=== PATIENT | male | born 1935 | race Caucasian/White ===

== ENCOUNTER 2018-05-31 07:55 | Observation (INO) ==
[2018-05-31 08:22] LABS: Basophils % 0.6 % (0.0-0.8); Eosinophils # 0.2 10*3/uL (0.0-0.87); Eosinophils % 3.1 % (0.00-10.9); Hematocrit 43.4 VOL% (42.0-52.0); Hemoglobin 14.6 GM/DL (14.0-18.0); Immature Granulocytes % 0.7 %; Immature Granulocytes Absolute 0.05 #; Lymphocytes # 1.3 10*3/uL (1.4-4.0); Lymphocytes % 17.8 % (21.2-54.2); Mean Corpuscular HGB Conc 33.6 GM/DL (32-36); Mean Corpuscular Hemoglobin 33 PG (27-34); Mean Corpuscular Volume 98.6 FL (87-102); Monocytes # 0.7 10*3/uL (0.11-0.8); Monocytes % 10.4 % (1.7-12.7); Neutrophils # 4.7 10*3/uL (1.4-7.4); Neutrophils % 67.4 % (38.7-73.9); Platelet Count 154 T/CUMM (130-400); Red Cell Distribution Width 13.5 % (9.3-17.3)
[2018-05-31 08:30] LABS: INR 1.1; PT Patient Result 11.6 SECS; Partial Thromboplastin Time 26.6 SECS (0-40)
[2018-05-31] MEDS ORDERED: ENOXAPARIN 100 MG/ML SYRINGE SUBCUT STA (08:32)
[2018-05-31 08:54] LABS: Alanine Aminotransferase 72 U/L (16-61); Albumin 3.8 G/DL (3.4-5.0); Alkaline Phosphatase 77 U/L (45-117); Aspartate Amino Transferase 41 U/L (0-37); Bilirubin,Total < 0.39 MG/DL (0.2-1.0); Blood Urea Nitrogen 21 MG/DL (7-18); Calcium 8.6 MG/DL (8.5-10.1); Glucose 184 MG/DL (74-106); Potassium 4.8 MMOL/L (3.5-5.1); Sodium 143 MMOL/L (136-145); Total Protein 6.8 G/DL (6.4-8.3)
[2018-05-31] MEDS ORDERED: MAGNESIUM SULF RIDER 4 GM in PREMIX 1 EACH IV PRN (09:42)
[2018-05-31] MEDS ORDERED: MAGNESIUM SULF RIDER 2 GM in PREMIX 1 EACH IV PRN (09:42)
[2018-05-31] MEDS ORDERED: HEPARIN/NACL 0.9% 2 UNITS/ML 1,000 ML IV ONE (09:46)
[2018-05-31] MEDS ORDERED: fentaNYL 100 MCG/2 ML VIAL ONE (09:54)
[2018-05-31] MEDS ORDERED: MIDAZOLAM 2 MG/2 ML VIAL ONE ×2 (09:54→10:25)
[2018-05-31] MEDS ORDERED: LIDOCAINE 1% 20 ML VIAL ONE (09:54)
[2018-05-31] MEDS ORDERED: diphenhydrAMINE CAP 25 MG CAPSULE PO ONE (09:59)
[2018-05-31] MEDS ORDERED: DIAZEPAM 5 MG TABLET PO ONE (09:59)
[2018-05-31] MEDS ORDERED: SODIUM CHLORIDE 0.9% 1,000 ML IV SCH (10:00)
[2018-05-31] MEDS ORDERED: guaiFENesin/DM ER 600-30 MG TABLET PO PRN (10:01)
[2018-05-31] MEDS ORDERED: BISACODYL 5 MG TABLET PO PRN (10:01)
[2018-05-31] MEDS ORDERED: DOCUSATE SODIUM 100 MG CAPSULE PO PRN (10:01)
[2018-05-31] MEDS ORDERED: ONDANSETRON 4 MG/2 ML VIAL IV PRN (10:01)
[2018-05-31] MEDS ORDERED: NITROGLYCERIN SL 0.4 MG TABLET SL PRN (10:01)
[2018-05-31] MEDS ORDERED: ACETAMINOPHEN 325 MG TABLET PO PRN (10:01)
[2018-05-31] MEDS ORDERED: ZALEPLON 5 MG CAPSULE PO PRN (10:01)
[2018-05-31] MEDS ORDERED: ALUMINUM/MAGNES/SIMETH MAX STR 30 ML UDCUP PO PRN (10:01)
[2018-05-31] MEDS ORDERED: DEXTROSE 50% 25 GM/50 ML VIAL IV PRN (10:03)
[2018-05-31] MEDS ORDERED: GLUCAGON 1 MG VIAL IM PRN (10:03)
[2018-05-31] MEDS ORDERED: hydrALAZINE 20 MG/1 ML VIAL IV PRN (10:04)
[2018-05-31] MEDS ORDERED: HEPARIN/NACL 0.9% 2 UNITS/ML 500 ML IV ONE (10:51)
[2018-05-31] MEDS ORDERED: ASPIRIN 325 MG TABLET ONE (11:03)
[2018-05-31] MEDS ORDERED: TICAGRELOR 90 MG TABLET ONE (11:04)
[2018-05-31] MEDS ORDERED: ACETAMINOPHEN/CODEINE 300-30 MG TABLET PO PRN (11:35)
[2018-05-31] MEDS ORDERED: MORPHINE 4 MG/1 ML VIAL IV PRN (11:35)
[2018-05-31] MEDS: INSULIN LISPRO 100 UNIT/ML SUBCUT SCH ×3 (12:50→20:10)
[2018-05-31 13:30] LABS: Troponin I 0.473 NG/ML (0.00-0.045)
[2018-05-31 15:01] LABS: Troponin I 0.417 NG/ML (0.00-0.045)
[2018-05-31] MEDS: GLIMEPIRIDE 4 MG TABLET PO SCH (17:16)
[2018-05-31 18:33] LABS: Troponin I 0.317 NG/ML (0.00-0.045)
[2018-05-31] MEDS: TICAGRELOR 90 MG TABLET PO SCH (20:08)
[2018-05-31] MEDS: CARVEDILOL 25 MG TABLET PO SCH (20:09)
[2018-05-31] MEDS ORDERED: CLOPIDOGREL 75 MG TABLET PO SCH (21:00)
[2018-05-31] MEDS ORDERED: NON-FORMULARY MEDICATION (Liraglutide [Victoza 2-Pak] 0.6 MG) SUBCUT SCH (21:00)
[2018-05-31] MEDS ORDERED: ASPIRIN EC 81 MG TABLET PO SCH (21:00)
[2018-06-01 04:20] LABS: Basophils % 0.3 % (0.0-0.8); Eosinophils # 0.2 10*3/uL (0.0-0.87); Eosinophils % 2.1 % (0.00-10.9); Hematocrit 41.1 VOL% (42.0-52.0); Hemoglobin 13.7 GM/DL (14.0-18.0); Immature Granulocytes % 0.9 %; Immature Granulocytes Absolute 0.08 #; Lymphocytes % 10.4 % (21.2-54.2); Mean Corpuscular HGB Conc 33.3 GM/DL (32-36); Mean Corpuscular Hemoglobin 33 PG (27-34); Mean Corpuscular Volume 98.8 FL (87-102); Mean Platelet Volume 11.7 FL (9.6-12.0); Monocytes # 0.7 10*3/uL (0.11-0.8); Monocytes % 7.9 % (1.7-12.7); Neutrophils # 7.3 10*3/uL (1.4-7.4); Neutrophils % 78.4 % (38.7-73.9); Platelet Count 138 T/CUMM (130-400); Red Blood Count 4.16 MC/CUMM (3.8-5.5); Red Cell Distribution Width 13.5 % (9.3-17.3); White Blood Count 9.3 T/CUMM (4-12)
[2018-06-01 04:44] LABS: Calcium 8.4 MG/DL (8.5-10.1); Potassium 3.9 MMOL/L (3.5-5.1); Risk Ratio 4.03; VLDL CHOLESTEROL 31.2 MG/DL
[2018-06-01 06:29] VITALS: BP 173/73
[2018-06-01] MEDS: INSULIN LISPRO 100 UNIT/ML SUBCUT SCH ×2 (08:04→12:35)
[2018-06-01] MEDS: CARVEDILOL 25 MG TABLET PO SCH (08:06)
[2018-06-01] MEDS: GLIMEPIRIDE 4 MG TABLET PO SCH (08:06)
[2018-06-01] MEDS: TICAGRELOR 90 MG TABLET PO SCH (08:07)
[2018-06-01] MEDS ORDERED: ENOXAPARIN 40 MG/0.4 ML SYRINGE SUBCUT SCH (09:00)
[2018-06-01] MEDS ORDERED: ATORVASTATIN 20 MG TABLET PO SCH (09:00)
[2018-06-01] MEDS ORDERED: LISINOPRIL 20 MG TABLET PO SCH (09:00)
[2018-06-01] MEDS ORDERED: hydroCHLOROthiazide 25 MG TABLET PO SCH (09:00)
[2018-06-01] MEDS ORDERED: PANTOPRAZOLE 40 MG TABLET PO SCH (09:00)
== END 2018-06-01 13:19 | disposition home or self-care (01) ==
LOC: N.EDINP 07:55 → N.ED 07:55 → N.EDINP 09:55 → N.CC 12:09
PROVIDERS: ADMIT Internal Medicine Cardiovascular Disease; ATTEND Internal Medicine Cardiovascular Disease
PROC: CLCCHCL (ICD-10-PCS; 2018-05-31 10:45)